=== PATIENT | female | born 1980 | race African-American/Black ===

== ENCOUNTER 2024-11-07 15:05 | Emergency (ER) | payer BC, SELFPAY ==
[2024-11-07 15:09] VITALS: BP 149/93
[2024-11-07 15:51] LABS: HCG, Serum Qualitative Screen Negative
[2024-11-07 15:53] LABS: % Basophils 0.6 % (0-2); % Eosinophils 4.9 % (0-6); % Immature Granulocytes 0.4 % (0-0.5); % Lymphocytes 46.5 % (20.5-51.1); % Monocytes 11.4 % (1.7-9.3); % Neutrophils 36.2 % (42.2-75.2); Absolute Eosinophils 0.3 10^3/uL (0-0.7); Absolute Lymphocytes 2.4 10^3/uL (1.2-3.4); Absolute Monocytes 0.6 10^3/uL (0.1-0.6); Absolute Neutrophils 1.8 10^3/uL (1.4-6.5); Hematocrit 35.4 % (37.0-47.0); Hemoglobin 11.7 g/dL (12.0-16.0); Mean Corp Hgb Conc. 33.1 g/dL (33.0-37.0); Mean Corpuscular Hgb 27.9 pg (27.0-31.0); Mean Corpuscular Volume 84.5 fL (81.0-99.0); Mean Platelet Volume 10.2 fL (7.4-10.4); Nucleated Red Blood Cells % 0 %; Platelet Count 295 10^3/uL (130-400); Red Blood Cell Count 4.19 10^6/uL (4.20-5.40); Red Cell Dist. Width 14.3 % (11.5-14.5); White Blood Cell Count 5.1 10^3/uL (4.8-10.8)
[2024-11-07 16:00] LABS: ALT (SGPT) 18 U/L (0-35); AST (SGOT) 23 U/L (14-36); Albumin 4.5 g/dl (3.5-5.0); Alkaline Phosphatase 67 U/L (38-126); Blood Urea Nitrogen 18 mg/dl (7-17); Calcium 9.5 mg/dl (8.4-10.2); Carbon Dioxide 25 mmol/L (22-30); Chloride 98 mmol/L (98-107); Glucose 104 mg/dl (70-99); Lipase 196 U/L (23-300); Potassium 3.9 mmol/L (3.5-5.1); Sodium 132 mmol/L (135-145); Total Bilirubin 0.5 mg/dl (0.2-1.3); Total Protein 7.2 g/dl (6.3-8.2); eGFR > 60.00
--- NOTE | 2024-11-07 16:35 | ED.GENMED ---
History of Present Illness
General
Chief Complaint: Abdominal Symptoms
Source: patient
Exam Limitations: none
Time Seen by Provider: 11/07/24 16:07
History of Present Illness
History of Present Illness:
44yoF with a history of hypertension and asthma presenting for evaluation of pelvic pain x 2 weeks. She reports pain in her pelvis/cervix region which radiates to the low back. Pain is constant but she will have an intermittent sharp pain that feels
like a rubber band is snapping. She also reports urinary urgency and frequency. She is currently on day 5 of her menstrual period. Her current symptoms do not feel like menstrual cramps. She had some brownish discharge prior to her period starting
but denies any discharge currently. She reports subjective fevers but has not been checking her temperature. No vomiting, diarrhea, constipation. She spoke with her PCP last week regarding her symptoms and she was prescribed Pyridium without
improvement. Previous abdominal surgeries include an appendectomy and tubal ligation.
Phy Exam
General Physical Exam
General Presentation: well appearing and no apparent distress
General age: appears stated age
General Skin: warm and dry
General Habitus: normal
General Mental: alert
ENT Exam
ENT Exam: normocephalic
Pulmonary Exam
Pulmonary Exam: no respiratory distress
Gastrointestinal Exam
Gastrointestinal Exam: soft, non distended, no cva tenderness and other (+Mild tenderness in suprapubic region. Abdomen soft, non-distended. No CVA tenderness. No rebound or guarding. )
Genitourinary Exam Female
Exam Female: other (Small amount of vaginal bleeding noted on speculum exam (patient currently on menstrual period). Cervix otherwise appears normal. No discharge. No CMT or adnexal tenderness. )
Neurological Exam
Neurological Exam: alert
[place] Coma Scale
Eye Opening: Spontaneous
Verbal Response: Oriented
Motor Response: Obeys Commands
GCS Total Score: 15
Skin Exam
Skin Exam: normal color and warm/dry
Psychiatric Exam
Psychiatric Exam: normal mood/affect
Course
Orders/Labs/Results
Orders:
Orders
11/07/24 15:14
Straight cath- Treatment ONCE
Test Result ONCE
11/07/24 15:30
Complete Blood Count/With Diff Urgent
Comprehensive Metabolic Panel Urgent
HCG, Serum Qualitative Screen Urgent
Comment: Notify provider if positive test present
Lipase Urgent
Urinalysis Reflex To Culture Urgent
Date Specimen was Collected: 11/07/24
Time Specimen was Collected: 15:14
Urine Microscopic Reflex Cult Urgent
Urine Culture Urgent
TRISTEN Source: U
Specimen Description:
Date Specimen was Collected: 11/07/24
Time Specimen was Collected: 15:14
11/07/24 16:28
Pelvis & Transvaginal US [US Pelvis W Transvag Combined] Urgent
Comment:
Reason For Exam: pelvic pain
11/07/24 16:32
Chlamydia/GC by PCR Urgent
TRISTEN Source: Endo-Cervical
Specimen Description:
Source:: ENDOCERVICAL
Date Specimen was Collected: 11/07/24
Time Specimen was Collected: 16:29
Genital Culture Urgent
TRISTEN Source: Endo-Cervical
Specimen Description:
Date Specimen was Collected: 11/07/24
Time Specimen was Collected: 16:29
Trichomonas - Wet Prep Urgent
TRISTEN Source: Vagina
Specimen Description:
Date Specimen was Collected: 11/07/24
Time Specimen was Collected: 16:29
Abnormal Lab Results
11/07/24
15:30
RBC 4.19 L 10^6/uL
(4.20-5.40)
Hgb 11.7 L g/dL
(12.0-16.0)
Hct 35.4 L %
(37.0-47.0)
Neutrophils % 36.2 L %
(42.2-75.2)
Monocytes % 11.4 H %
(1.7-9.3)
Sodium 132 L mmol/L
(135-145)
BUN 18 H mg/dl
(7-17)
Glucose 104 H mg/dl
(70-99)
Ur Occult Blood Reflex 4+ A
(Negative)
Leukocyte Esterase Rfl 2+ A
(Negative)
Urine RBC 16-20 A /HPF
(0-2)
Urine WBC (Reflex) 26-30 A /HPF
(0-5)
Urine Bacteria (Reflex) Few A
(Negative)
Urine Albumin (Reflex) 1+ A
(Neg - Trace)
11/07/24 15:30
11/07/24 15:30
Vital Signs
Initial and Last Documented VS:
Initial Vital Signs
Temp Pulse Resp BP Pulse Ox
98.4 F 59 18 149/93 98
11/07/24 15:09 11/07/24 15:09 11/07/24 15:09 11/07/24 15:09 11/07/24 15:09
Last Documented Vital Signs
Temp Pulse Resp BP Pulse Ox
98.4 F 70 18 131/98 99
11/07/24 15:09 11/07/24 18:37 11/07/24 18:37 11/07/24 18:37 11/07/24 18:37
MDM/Problems Addressed
Differential Diagnosis Includes:
44yoF here with pelvic pain and low back pain x 2 weeks. Also having urinary urgency and frequency. Taking Pyridium without relief. Patient is mildly hypertensive with otherwise normal vital signs. She is well-appearing no stress. No signs of
peritonitis on abdominal exam. No CVA tenderness. Speculum exam shows a normal-appearing cervix without cervical motion tenderness. Differential diagnosis includes but is not limited to: UTI, pyelonephritis, STD, ovarian cyst, no clinical signs
of PID
Initial ED plan: Labs obtained in triage which are overall unremarkable. Will check UA, vaginal swabs, and pelvic ultrasound.
*Critical Care Note
Total Time (30-74mins, 75-104mins- exclusive of procedures): Not Applicable
Update Note
Update Note:
UA shows 2+ leukocytes. Trichomonas testing negative, remainder of vaginal swabs still pending. Pelvic ultrasound shows uterine fibroids without other acute findings. Prior to reassessment, patient eloped from emergency department. I called
patient and spoke with her on the phone regarding results. Prescription for Bactrim sent electronically to her pharmacy. She was advised to follow-up with her PCP and [facility].
ED Attending Note
-
Portions of this chart may have been created with voice recognition software.� Occasional wrong word or��sound alike� substitutions may have occurred due to the inherent limitations of voice recognition software.
Discharge Plan
Departure
Patient Disposition: Elopement
Date of Disposition: 11/07/24
Time of Disposition: 19:59
Discharge Problem:
Pelvic pain, Urinary tract infection
Prescriptions:
New
sulfamethoxazole-trimethoprim [Bactrim DS] 800-160 mg tablet
1 tab PO BID 7 Days Qty: 14 0RF
Referrals:
PEREZ, MOY [Other]
Interventions
Interventions:
*Risk Screen - Suicide Last Done: 11/07/24 15:12
*General Assessment Last Done: 11/07/24 15:12
*Neglect/Abuse Screening Last Done: 11/07/24 15:12
*Nursing Disposition Last Done: 11/07/24 20:19
HA-Jutugc-Duqvypryod Assessment Last Done: 11/07/24 16:45
Discharge Date and Time
Discharge Date/Time: 11/07/24 20:10
Print Language: WOLOF
[2024-11-07 16:54] LABS: Urine Albumin 1+ (Neg - Trace); Urine Bilirubin Negative (Negative); Urine Character Clear (Clear); Urine Color Amber; Urine Glucose Negative (Negative); Urine Ketone Negative (Negative); Urine Leukocyte 2+ (Negative); Urine Nitrite Negative (Negative); Urine Occult Blood 4+ (Negative); Urine Urobilinogen 1+ (Neg - 1+)
[2024-11-07 17:22] LABS: Urine Bacteria Few (Negative); Urine Red Blood Cell 16-20 /HPF (0-2); Urine White Cell 26-30 /HPF (0-5)
[2024-11-07 18:37] VITALS: BP 131/98
== END 2024-11-07 20:10 | disposition left against medical advice (07) ==
LOC: EMR 15:05
PROVIDERS: Physician Assistant; EMERGENCY PHYSICIAN Emergency Medicine
DX: N39.0 Urinary tract infection, site not specified (principal); D25.9 Leiomyoma of uterus, unspecified; J45.909 Unspecified asthma, uncomplicated; I10 Essential (primary) hypertension; Z53.29 Procedure and treatment not carried out because of patient's decision for other reasons
CPT/HCPCS: 99284; 76830; 76856; 80053; 81003; 81015; 83690; 84703; 85025; 87070; 87077; 87086; 87147; 87210; 87491; 87591